=== PATIENT | female | born 1940 | race Caucasian/White ===

== ENCOUNTER 2024-04-26 09:09 | Inpatient (IN) | payer MEDICARE ==
[~2024-04-26] VITALS: Ht 152.4 cm; Wt 54.4 kg
[2024-04-26 09:10] VITALS: TEMP 98.4
[2024-04-26 09:55] LABS: BASOPHILS % 0.1 % (0.0-1.0); HEMATOCRIT 28.7 % (34.2-44.1); HEMOGLOBIN 9.1 g/dL (12.0-16.0); LYMPHOCYTES # (AUTO) 1.8 (1.0-3.2); LYMPHOCYTES % 10.7 % (18.0-39.1); MEAN CORPUSCULAR HEMOGLOBIN 32.3 pg (28-32); MEAN CORPUSCULAR HGB CONC 31.7 g/dL (31-35); MEAN CORPUSCULAR VOLUME 101.8 fL (81-99); MONOCYTES # (AUTO) 1.1 (0.2-0.8); MONOCYTES % 6.2 % (4.4-11.3); NEUTROPHILS % 82.3 % (38.7-80.0); PLATELET COUNT 362 x10e3/uL (140-360); RED BLOOD COUNT 2.82 x10e6/uL (3.6-5.1); RED CELL DISTRIBUTION WIDTH 12.9 % (11.7-14.4); WHITE BLOOD COUNT 17.06 x10e3/uL (4.8-10.8)
[2024-04-26 10:07] LABS: ALANINE AMINOTRANSFERASE 11 IU/L (0-55); ALBUMIN 3.5 g/dL (3.5-5.0); ALBUMIN/GLOBULIN RATIO 1.1 (0.8-2.0); ALKALINE PHOSPHATASE 40 IU/L (40-150); ANION GAP 16.6 mmol/L (8-16); BILIRUBIN,TOTAL 0.4 mg/dL (0.2-1.2); BLOOD UREA NITROGEN 33 mg/dL (7-26); BUN/CREATININE RATIO 34 (6-25); CALCIUM 9.8 mg/dL (8.4-10.2); CARBON DIOXIDE 23 mmol/L (22-29); CHLORIDE 103 mmol/L (98-107); CREATININE, SERUM 0.96 mg/dL (0.57-1.11); EST GLOMERULAR FILTRATION RATE 59 ML/MIN (>=60); GLUCOSE 143 mg/dL (74-118); POTASSIUM 3.6 mmol/L (3.5-5.1); SODIUM 139 mmol/L (136-145); TOTAL PROTEIN 6.7 g/dL (6.5-8.1)
[2024-04-26 10:19] LABS: TROPONIN I < 0.05 ng/mL (0.0-0.40)
[2024-04-26 10:43] LABS: LIPASE > 1200 U/L (8-78)
[2024-04-26] MEDS ORDERED: IOPAMIDOL 370 MG/ML 100 ML INFUS..BTL INJ ONE (11:04)
[2024-04-26] MEDS: LIDOCAINE VISC 2% SOLN 15 ML UDC PO ONE (12:07)
[2024-04-26] MEDS: MAGNESIUM/ALUMINUM/SIMETHICONE 30 ML UDC PO ONE (12:07)
[2024-04-26] MEDS: BELLADONNA ALK/PHENOBARBITAL 5 ML UDC PO STA (12:07)
[2024-04-26] MEDS: METRONIDAZOLE 750MG/NS 150ML 150 ML IV SCH (12:08)
[2024-04-26] MEDS: ONDANSETRON HCL INJ 2MG/ML 2ML 2 MG/ML VIAL IV STA (12:13)
[2024-04-26] MEDS: DIPHENHYDRAMINE HCL INJ 50 MG/ML VIAL IV ONE (12:22)
[2024-04-26] MEDS ORDERED: DIPHENHYDRAMINE HCL INJ 50 MG/ML VIAL ONE (12:26)
[2024-04-26 13:41] VITALS: PULSE 96; RESP 18; O2SAT 96
[2024-04-26] MEDS: SODIUM CHLORIDE 0.9% 1000ML 1,000 ML IV SCH (14:24)
[2024-04-26 14:33] VITALS: PULSE 87; RESP 18
[2024-04-26 18:11] VITALS: BP 134/78; PULSE 96; RESP 18; TEMP 98.3; O2SAT 99
[2024-04-26] MEDS ORDERED: NO HOME MEDS. (18:41)
[2024-04-26 20:00] VITALS: BP 140/77; PULSE 88; RESP 16; TEMP 98.4; O2SAT 98
[2024-04-26 20:20] VITALS: PULSE 88; RESP 18; O2SAT 98
[2024-04-27] VITALS (8 sets, daily range): BP systolic 107–119; BP diastolic 63–71; PULSE 77–93; RESP 16–21; TEMP 97.2–99.8; O2SAT 93–98
[2024-04-27 06:23] LABS: BASOPHILS % 0.4 % (0.0-1.0); EOSINOPHILS # (AUTO) 0.1 (0.0-0.4); EOSINOPHILS % 1.3 % (0.0-6.0); LYMPHOCYTES # (AUTO) 2.3 (1.0-3.2); LYMPHOCYTES % 22.2 % (18.0-39.1); MEAN CORPUSCULAR HEMOGLOBIN 32.6 pg (28-32); MEAN CORPUSCULAR HGB CONC 30.7 g/dL (31-35); NEUTROPHILS # (AUTO) 6.7 (2.1-6.9); NEUTROPHILS % 64.6 % (38.7-80.0); PLATELET COUNT 291 x10e3/uL (140-360); RED BLOOD COUNT 2.15 x10e6/uL (3.6-5.1); RED CELL DISTRIBUTION WIDTH 13.4 % (11.7-14.4); WHITE BLOOD COUNT 10.37 x10e3/uL (4.8-10.8)
[2024-04-27 06:25] LABS: HEMATOCRIT 22.8 % (34.2-44.1)
[2024-04-27 07:05] LABS: % IRON SATURATION 10 % (15-50); IRON 31 ug/dL (50-170); TOTAL IRON BINDING CAPACITY 311 ug/dL (261-478); TRANSFERRIN 222 mg/dL (180-382)
[2024-04-27] MEDS: LACTATED RINGER'S 1,000 ML INJ SCH (09:16)
[2024-04-27 10:13] LABS: FOLATE 15.2 ng/mL (7.0-15.4)
[2024-04-27] MEDS ORDERED: DEXAMETHASONE SOD PHOS 10 MG/1 ML VIAL IV ONE (10:15)
[2024-04-27] MEDS ORDERED: DIPHENHYDRAMINE HCL INJ 50 MG/ML VIAL IV ONE (10:15)
[2024-04-27] MEDS ORDERED: GADOBENATE DIMEGLUMINE 1 ML IV ONE (11:12)
[2024-04-27] MEDS: ACETAMINOPHEN 325 MG TAB PO PRN (16:02)
[2024-04-27] MEDS: ENOXAPARIN SOD INJ 40 MG/0.4 ML SYR SC SCH (16:26)
[2024-04-27] MEDS: DIPHENHYDRAMINE HCL INJ 50 MG/ML VIAL IV ONE (16:50)
[2024-04-27] MEDS: DEXAMETHASONE SOD PHOS 10 MG/1 ML VIAL IV ONE (16:50)
[2024-04-27] MEDS: METRONIDAZOLE 500MG/NS 100ML 100 ML IV SCH (21:02)
[2024-04-27] MEDS: FUROSEMIDE INJ 10 MG/ML 2 ML VIAL IV PRN (22:18)
[2024-04-28] VITALS (9 sets, daily range): BP systolic 116–147; BP diastolic 69–97; PULSE 64–116; RESP 16–18; TEMP 97.3–97.7; O2SAT 92–100
[2024-04-28] MEDS: ONDANSETRON HCL INJ 2MG/ML 2ML 2 MG/ML VIAL IV PRN (00:07)
[2024-04-28] MEDS: Morphine 4mg INJECTION 4 MG/ML INJ IV PRN (00:07)
[2024-04-28 07:22] LABS: CALCIUM 8.4 mg/dL (8.7-10.3)
[2024-04-28 08:19] LABS: BASOPHILS % 0.2 % (0.0-1.0); HEMATOCRIT 35.6 % (34.2-44.1); HEMOGLOBIN 11.9 g/dL (12.0-16.0); LYMPHOCYTES # (AUTO) 1.2 (1.0-3.2); LYMPHOCYTES % 13.7 % (18.0-39.1); MEAN CORPUSCULAR HEMOGLOBIN 30.9 pg (28-32); MEAN CORPUSCULAR HGB CONC 33.4 g/dL (31-35); MEAN CORPUSCULAR VOLUME 92.5 fL (81-99); MONOCYTES # (AUTO) 0.4 (0.2-0.8); MONOCYTES % 4.3 % (4.4-11.3); NEUTROPHILS % 81.2 % (38.7-80.0); PLATELET COUNT 267 x10e3/uL (140-360); RED BLOOD COUNT 3.85 x10e6/uL (3.6-5.1); RED CELL DISTRIBUTION WIDTH 15.7 % (11.7-14.4)
[2024-04-28 08:41] LABS: MAGNESIUM 1.7 MG/DL (1.3-2.1)
[2024-04-28 09:01] LABS: THYROID STIMULATING HORMONE 0.481 uIU/mL (0.350-4.940)
[2024-04-28 09:07] LABS: ALBUMIN 3.1 g/dL (3.5-5.0); ANION GAP 17.3 mmol/L (8-16); BILIRUBIN,TOTAL 0.7 mg/dL (0.2-1.2); CALCIUM 8.8 mg/dL (8.4-10.2); CREATININE, SERUM 0.96 mg/dL (0.57-1.11); TOTAL PROTEIN 6.3 g/dL (6.5-8.1)
[2024-04-28 09:08] LABS: POTASSIUM 3.3 mmol/L (3.5-5.1)
[2024-04-28] MEDS: IRON SUCROSE 100 MG in SODIUM CHLORIDE 0.9% 100 ML IV SCH (09:14)
[2024-04-28] MEDS: LACTATED RINGER'S 1,000 ML INJ ONE (10:58)
[2024-04-28] MEDS: SODIUM CHLORIDE 0.9% 250ML 250 ML ONE (10:59)
[2024-04-28] MEDS: SODIUM CHLORIDE 0.9% 250ML 250 ML IV ONE (10:59)
[2024-04-29] VITALS (9 sets, daily range): BP systolic 126–170; BP diastolic 66–94; PULSE 76–88; RESP 17–18; TEMP 97.2–98.7; O2SAT 91–96
[2024-04-29 08:23] LABS: BASOPHILS # (AUTO) 0.1 (0.0-0.1); BASOPHILS % 0.5 % (0.0-1.0); EOSINOPHILS # (AUTO) 0.2 (0.0-0.4); EOSINOPHILS % 1.9 % (0.0-6.0); HEMATOCRIT 33.2 % (34.2-44.1); HEMOGLOBIN 11.1 g/dL (12.0-16.0); LYMPHOCYTES # (AUTO) 1.5 (1.0-3.2); LYMPHOCYTES % 13.6 % (18.0-39.1); MEAN CORPUSCULAR HGB CONC 33.4 g/dL (31-35); MEAN CORPUSCULAR VOLUME 92.7 fL (81-99); MONOCYTES % 8.8 % (4.4-11.3); NEUTROPHILS # (AUTO) 8.2 (2.1-6.9); NEUTROPHILS % 74.5 % (38.7-80.0); PLATELET COUNT 265 x10e3/uL (140-360); RED BLOOD COUNT 3.58 x10e6/uL (3.6-5.1); RED CELL DISTRIBUTION WIDTH 15.4 % (11.7-14.4); WHITE BLOOD COUNT 10.98 x10e3/uL (4.8-10.8)
[2024-04-29 08:46] LABS: ALBUMIN/GLOBULIN RATIO 1.1 (0.8-2.0); ANION GAP 11.1 mmol/L (8-16); BILIRUBIN,TOTAL 0.4 mg/dL (0.2-1.2); CALCIUM 8.4 mg/dL (8.4-10.2); CREATININE, SERUM 0.78 mg/dL (0.57-1.11); MAGNESIUM 1.8 MG/DL (1.3-2.1); PHOSPHORUS 1.4 MG/DL (2.3-4.7); TOTAL PROTEIN 5.8 g/dL (6.5-8.1)
[2024-04-29 08:49] LABS: POTASSIUM 3.1 mmol/L (3.5-5.1)
[2024-04-29] MEDS ORDERED: POTASSIUM PHOSPHATE 30 MM in SODIUM CHLORIDE 0.9% 250ML 250 ML IV ONE (23:00)
[2024-04-29] MEDS: MAGNESIUM SULFATE 2GM/50ML 50 ML IV ONE (23:15)
[2024-04-29] MEDS: D5.45%NS/KCL 20MEQ 1,000 ML IV SCH (23:15)
[2024-04-30] VITALS (8 sets, daily range): BP systolic 146–175; BP diastolic 87–93; PULSE 78–87; RESP 18–19; TEMP 98.3–98.9; O2SAT 95–96
[2024-04-30] MEDS ORDERED: TRAMADOL HCL 50 MG TAB PO PRN (00:30)
[2024-04-30] MEDS: METOCLOPRAMIDE HCL 10 MG/2ML VIAL IV ONE (00:58)
[2024-04-30] MEDS: TRAMADOL HCL 50 MG TAB PO ONE (00:59)
[2024-04-30] MEDS: POTASSIUM PHOSPHATE 30 MM in SODIUM CHLORIDE 0.9% 500ML 500 ML IV ONE (01:48)
[2024-04-30] MEDS: METOCLOPRAMIDE HCL 10 MG/2ML VIAL IV SCH ×2 (05:12→17:03)
[2024-04-30 06:27] LABS: BASOPHILS % 0.4 % (0.0-1.0); EOSINOPHILS # (AUTO) 0.1 (0.0-0.4); EOSINOPHILS % 1.3 % (0.0-6.0); HEMATOCRIT 38.7 % (34.2-44.1); HEMOGLOBIN 13.1 g/dL (12.0-16.0); LYMPHOCYTES # (AUTO) 1.9 (1.0-3.2); LYMPHOCYTES % 18.9 % (18.0-39.1); MEAN CORPUSCULAR HEMOGLOBIN 31.7 pg (28-32); MEAN CORPUSCULAR HGB CONC 33.9 g/dL (31-35); MEAN CORPUSCULAR VOLUME 93.7 fL (81-99); MONOCYTES # (AUTO) 1.1 (0.2-0.8); MONOCYTES % 10.9 % (4.4-11.3); NEUTROPHILS # (AUTO) 6.9 (2.1-6.9); NEUTROPHILS % 67.7 % (38.7-80.0); PLATELET COUNT 286 x10e3/uL (140-360); RED BLOOD COUNT 4.13 x10e6/uL (3.6-5.1); RED CELL DISTRIBUTION WIDTH 14.6 % (11.7-14.4); WHITE BLOOD COUNT 10.18 x10e3/uL (4.8-10.8)
[2024-04-30 07:03] LABS: ANION GAP 19.3 mmol/L (8-16); CALCIUM 8.2 mg/dL (8.4-10.2); CREATININE, SERUM 0.74 mg/dL (0.57-1.11)
[2024-04-30 07:13] LABS: POTASSIUM 3.3 mmol/L (3.5-5.1)
[2024-04-30 07:43] LABS: MAGNESIUM 2.2 MG/DL (1.3-2.1); PHOSPHORUS 2.9 MG/DL (2.3-4.7)
[2024-05-01] VITALS (8 sets, daily range): BP systolic 160–176; BP diastolic 93–103; PULSE 73–94; RESP 18–20; TEMP 97.9–99.1; O2SAT 95–99
[2024-05-01 06:43] LABS: BASOPHILS % 0.3 % (0.0-1.0); EOSINOPHILS # (AUTO) 0.3 (0.0-0.4); EOSINOPHILS % 3.5 % (0.0-6.0); HEMATOCRIT 38.6 % (34.2-44.1); HEMOGLOBIN 12.4 g/dL (12.0-16.0); LYMPHOCYTES # (AUTO) 1.5 (1.0-3.2); LYMPHOCYTES % 15.4 % (18.0-39.1); MEAN CORPUSCULAR HEMOGLOBIN 30.9 pg (28-32); MEAN CORPUSCULAR HGB CONC 32.1 g/dL (31-35); MEAN CORPUSCULAR VOLUME 96.3 fL (81-99); MONOCYTES # (AUTO) 1.5 (0.2-0.8); MONOCYTES % 15.9 % (4.4-11.3); NEUTROPHILS # (AUTO) 6.2 (2.1-6.9); NEUTROPHILS % 64.3 % (38.7-80.0); PLATELET COUNT 280 x10e3/uL (140-360); RED BLOOD COUNT 4.01 x10e6/uL (3.6-5.1); RED CELL DISTRIBUTION WIDTH 14.1 % (11.7-14.4); WHITE BLOOD COUNT 9.56 x10e3/uL (4.8-10.8)
[2024-05-01 07:03] LABS: ALANINE AMINOTRANSFERASE 17 IU/L (0-55); ALBUMIN 3.1 g/dL (3.5-5.0); ALKALINE PHOSPHATASE 40 IU/L (40-150); ANION GAP 12.8 mmol/L (8-16); BILIRUBIN,TOTAL 0.4 mg/dL (0.2-1.2); BLOOD UREA NITROGEN < 5 mg/dL (7-26); CALCIUM 8.2 mg/dL (8.4-10.2); CARBON DIOXIDE 26 mmol/L (22-29); CHLORIDE 105 mmol/L (98-107); CREATININE, SERUM 0.74 mg/dL (0.57-1.11); EST GLOMERULAR FILTRATION RATE 81 ML/MIN (>=60); GLUCOSE 117 mg/dL (74-118); LIPASE 170 U/L (8-78); SODIUM 141 mmol/L (136-145); TOTAL PROTEIN 6.1 g/dL (6.5-8.1)
[2024-05-01 07:09] LABS: BUN/CREATININE RATIO 7 (6-25)
[2024-05-01 07:11] LABS: POTASSIUM 2.8 mmol/L (3.5-5.1)
[2024-05-01 07:22] LABS: MAGNESIUM 1.8 MG/DL (1.3-2.1); PHOSPHORUS 1.2 MG/DL (2.3-4.7)
[2024-05-01] MEDS ORDERED: TRAMADOL HCL 50 MG TAB PO PRN (09:00)
[2024-05-01] MEDS ORDERED: Morphine 4mg INJECTION 4 MG/ML INJ IV PRN (09:00)
[2024-05-01] MEDS ORDERED: MAGNESIUM SULFATE 2GM/50ML IV ONE (09:00)
[2024-05-01] MEDS ORDERED: POTASSIUM PHOSPHATE 20 MM in SODIUM CHLORIDE 0.9% 250ML 250 ML IV SCH (09:45)
[2024-05-01] MEDS: POTASSIUM CHLORIDE 20 MEQ TAB CR PO SCH (10:54)
[2024-05-01] MEDS: MAGNESIUM SULFATE 2GM/50ML 50 ML IV ONE (10:55)
[2024-05-01] MEDS: METOPROLOL TARTRATE 25 MG TAB PO SCH (10:58)
[2024-05-01] MEDS: HYDRALAZINE HCL 25 MG TAB PO PRN (12:45)
[2024-05-02 04:32] VITALS: BP 170/87; PULSE 85; RESP 18; TEMP 98.6; O2SAT 98
[2024-05-02 07:04] LABS: ANION GAP 13.4 mmol/L (8-16); CALCIUM 8.1 mg/dL (8.4-10.2); CREATININE, SERUM 0.71 mg/dL (0.57-1.11); PHOSPHORUS 1.4 MG/DL (2.3-4.7)
[2024-05-02 07:39] LABS: POTASSIUM 3.4 mmol/L (3.5-5.1)
[2024-05-02 08:00] VITALS: BP 156/96; PULSE 95; RESP 20; TEMP 98.3; O2SAT 100
[2024-05-02] MEDS ORDERED: POTASSIUM PHOSPHATE 20 MM in SODIUM CHLORIDE 0.9% 250ML 250 ML IV STA (08:39)
[2024-05-02 09:19] VITALS: BP 156/90; PULSE 95; RESP 20; TEMP 98.5; O2SAT 100
[2024-05-02] MEDS: POTASSIUM CHLORIDE 10MEQ EA PO ONE (09:58)
[2024-05-02] MEDS: PHOSPHORUS 250 MG TAB PO ONE (09:58)
== END 2024-05-02 10:05 | disposition home or self-care (01) | DRG 438 ==
LOC: ER 09:18 → ERHOLD 12:53 → MED/SURG2 18:06
PROVIDERS: ADMIT Internal Medicine; ATTEND Internal Medicine
PROC: 30233N1 Transfusion of Nonautologous Red Blood Cells into Peripheral Vein, Percutaneous Approach (ICD-10-PCS; principal; 2024-04-27)
DX: K85.80 Other acute pancreatitis without necrosis or infection (principal); K29.71 Gastritis, unspecified, with bleeding; K57.31 Diverticulosis of large intestine without perforation or abscess with bleeding; E86.0 Dehydration; E87.6 Hypokalemia; E83.39 Other disorders of phosphorus metabolism; E83.42 Hypomagnesemia; D50.9 Iron deficiency anemia, unspecified; D72.823 Leukemoid reaction; R00.0 Tachycardia, unspecified; R51.9 Headache, unspecified; T37.3X5A Adverse effect of other antiprotozoal drugs, initial encounter; Y92.230 Patient room in hospital as the place of occurrence of the external cause; F43.9 Reaction to severe stress, unspecified; F41.9 Anxiety disorder, unspecified; I10 Essential (primary) hypertension; M19.91 Primary osteoarthritis, unspecified site; Z87.891 Personal history of nicotine dependence; Z71.3 Dietary counseling and surveillance; Z68.23 Body mass index [BMI] 23.0-23.9, adult; Z90.49 Acquired absence of other specified parts of digestive tract; Z90.710 Acquired absence of both cervix and uterus
CPT/HCPCS: 36415; 71045; 74177; 74183; 76705; 80048; 80053; 80061; 82270; 82607; 82746; 83540; 83605; 83690; 83735; 83970; 84100; 84443; 84466; 84484; 85014; 85025; 85045; 86301; 86850; 86900; 86920; 87040; 93005; 94799; 99284; J0696; J1100; J1200; J1650; J1756; J1940; J2270; J2405; J2470; J2543; J2765; J3475; J7030; J7040; J7050; P9016; Q9967